=== PATIENT | female | born 1970 | race Caucasian/White ===

== ENCOUNTER 2021-05-26 19:25 | Emergency (ER) | payer BC ==
[2021-05-26 19:48] VITALS: RESP 18; TEMP 98
--- NOTE | 2021-05-26 19:53 | ED ---
General Adult HPI - General Chief complaint: Chest Pain Stated complaint: Palpitations Time Seen by Provider: 05/26/21 19:28 Source: patient Mode of arrival: ambulatory - History of Present Illness Initial comments: Hoda is a 50yo F with PMH of anxiety and palpitations. Patient presents to the ER today via ambulance with complaint of worsening palpitations for 3 weeks duration. Patient denies any chest pain, she reports the palpitations occur without provocation, improve with time. She denies any caffeine, chocolate, energy drinks or amphetamine intake. She states that she's been evaluated for palpitations and passes have a thermometer but there is never been any findings. She denies recent illness. Patient does admit to drinking approximately 15 beers daily and is a heavy cigarette smoker. She has no cardiac history does not follow with cardiology. - Related Data Home Medications Medication Instructions Recorded Confirmed Albuterol Sulfate [Albuterol 2 puff INHALATION RT-Q4H PRN 05/26/21 05/26/21 Sulfate Hfa] Budesonide/Formoterol Fumarate 2 puff INHALATION RT-BID 05/26/21 05/26/21 [Budesonide-Formoterol 160-4.5] Cetirizine HCl 10 mg PO DAILY 05/26/21 05/26/21 Diltiazem HCl [Cardizem CD] 360 mg PO DAILY 05/26/21 05/26/21 Escitalopram [Lexapro] 20 mg PO DAILY 05/26/21 05/26/21 Lansoprazole [Prevacid] 30 mg PO DAILY 05/26/21 05/26/21 Levothyroxine Sodium 150 mcg PO DAILY 05/26/21 05/26/21 Montelukast Sodium [Singulair] 10 mg PO HS 05/26/21 05/26/21 Spironolactone [Aldactone] 25 mg PO DAILY 05/26/21 05/26/21 Allergies Allergy/AdvReac Type Severity Reaction Status Date / Time cephalexin [From Keflex] Allergy Intermediate Itching Verified 05/26/21 21:41 clonidine Allergy Intermediate Itching Verified 05/26/21 21:41 codeine Allergy Intermediate Itching Verified 05/26/21 21:41 hydromorphone [From Dilaudid] Allergy Intermediate Itching Verified 05/26/21 21:41 Sulfa (Sulfonamide Allergy Intermediate Itching Verified 05/26/21 21:41 Antibiotics) Review of Systems ROS Statement: Those systems with pertinent positive or pertinent negative responses have been documented in the HPI. ROS Other: All systems not noted in ROS Statement are negative. Past Medical History Smoking Status: Current every day smoker Past Alcohol Use History: Abuse Past Drug Use History: None Reported General Exam - General Exam Comments Initial Comments: Physical Exam GENERAL: Patient is well-developed and well-nourished. Patient is nontoxic and well- hydrated and is in no distress. HENT: Normocephalic, Atraumatic. EYES: PERRL, EOMI PULMONARY: Unlabored respirations. No audible rales rhonchi or wheezing was noted. CARDIOVASCULAR: There is a regular rate and rhythm without any murmurs gallops or rubs. ABDOMEN: Soft and nontender with normal bowel sounds. SKIN: Skin is clear with no lesions or rashes and otherwise unremarkable. : Deferred NEUROLOGIC: Patient is alert and oriented x3. Moving all extremities spontaneously MUSCULOSKELETAL: Normal extremities with adequate strength and full range of motion. No lower extremity swelling or edema. No calf tenderness. PSYCHIATRIC: Normal psychiatric evaluation. Course Vital Signs 05/26/21 05/26/21 19:29 21:11 Temperature 98.0 F Pulse Rate 84 88 Respiratory 18 18 Rate Blood Pressure 142/94 123/77 O2 Sat by Pulse 100 99 Oximetry EKG Findings - EKG Comments: EKG Findings:: EKG was obtained due to complaint of palpitations, EKG was obtained 193, rate is 76 rhythm is sinus rhythm axis normal intervals, CA 156, QRS 110, QTC 428. There are no acute ST elevations or depressions no evidence of ischemia or infarction or arrhythmia. Medical Decision Making - Medical Decision Making The patient was seen and evaluated, history was obtained from the patient Patient with PVCs noted on the family services manager, EKG with sinus rhythm Labs were relatively unremarkable, TSH is low however free T4 is within normal limits patient is not tachycardic, patient maintained in sinus rhythm on the monitor in the emergency department Culture discussed the patient who feels reassured and is comfortable with plan for discharge home - Lab Data Result diagrams: 05/26/21 20:21 05/26/21 20:21 Lab Results 05/26/21 05/26/21 05/26/21 Range/Units 20:21 20:21 20:21 WBC 10.5 (3.8-10.6) k/uL RBC 4.75 (3.80-5.40) m/uL Hgb 17.4 H (11.4-16.0) gm/dL Hct 52.1 H (34.0-46.0) % MCV 109.8 H (80.0-100.0) fL MCH 36.7 H (25.0-35.0) pg MCHC 33.4 (31.0-37.0) g/dL RDW 13.2 (11.5-15.5) % Plt Count 282 (150-450) k/uL MPV 7.6 Neutrophils % 64 % Lymphocytes % 21 % Monocytes % 7 % Eosinophils % 4 % Basophils % 1 % Neutrophils # 6.8 (1.3-7.7) k/uL Lymphocytes # 2.2 (1.0-4.8) k/uL Monocytes # 0.7 (0-1.0) k/uL Eosinophils # 0.5 (0-0.7) k/uL Basophils # 0.1 (0-0.2) k/uL Macrocytosis Marked A Sodium 139 (137-145) mmol/L Potassium 4.3 (3.5-5.1) mmol/L Chloride 104 (98-107) mmol/L Carbon Dioxide 22 (22-30) mmol/L Anion Gap 13 mmol/L BUN 2 L (7-17) mg/dL Creatinine 0.42 L (0.52-1.04) mg/dL Est GFR (CKD-EPI)AfAm >90 (>60 ml/min/1.73 sqM) Est GFR (CKD-EPI)NonAf >90 (>60 ml/min/1.73 sqM) Glucose 93 (74-99) mg/dL Calcium 9.4 (8.4-10.2) mg/dL Magnesium 2.2 (1.6-2.3) mg/dL Total Bilirubin 0.4 (0.2-1.3) mg/dL AST 84 H (14-36) U/L ALT 40 H (4-34) U/L Alkaline Phosphatase 149 H (38-126) U/L Troponin I <0.012 (0.000-0.034) ng/mL Total Protein 7.9 (6.3-8.2) g/dL Albumin 4.4 (3.5-5.0) g/dL TSH 0.208 L (0.465-4.680) mIU/L Free T4 1.76 (0.78-2.19) ng/dL Disposition Clinical Impression: Palpitations Disposition: HOME SELF-CARE Condition: Stable Instructions (If sedation given, give patient instructions): Heart Palpitations (DC) Is patient prescribed a controlled substance at d/c from ED?: No Referrals: Adebayo Angel MD [STAFF PHYSICIAN] - 1-2 days Parvez Nettles MD [STAFF PHYSICIAN] - 1-2 days
[2021-05-26 20:27] LABS: Eosinophils % (A) 4 %; HCT 52.1 % (34.0-46.0); HGB 17.4 gm/dL (11.4-16.0); Lymphocytes % (A) 21 %; MCH 36.7 pg (25.0-35.0); MCHC 33.4 g/dL (31.0-37.0); MCV 109.8 fL (80.0-100.0); Macrocytosis Marked; Mean Platelet Volume 7.6; Monocytes % (A) 7 %; Neutrophils % (A) 64 %; Platelet Count 282 k/uL (150-450); RBC 4.75 m/uL (3.80-5.40); RDW 13.2 % (11.5-15.5); WBC 10.5 k/uL (3.8-10.6)
[2021-05-26 20:28] LABS: Basophils # (A) 0.1 k/uL (0-0.2); Basophils % (A) 1 %; Eosinophils # (A) 0.5 k/uL (0-0.7); Lymphocytes # (A) 2.2 k/uL (1.0-4.8); Monocytes # (A) 0.7 k/uL (0-1.0); Neutrophils # (A) 6.8 k/uL (1.3-7.7)
[2021-05-26 20:37] LABS: ALT 40 U/L (4-34); AST 84 U/L (14-36); African American GFR (CKD) >90 (>60 ml/min/1.73 sqM); Albumin 4.4 g/dL (3.5-5.0); Alkaline Phosphatase 149 U/L (38-126); Anion Gap 13 mmol/L; Blood Urea Nitrogen 2 mg/dL (7-17); Calcium 9.4 mg/dL (8.4-10.2); Carbon Dioxide 22 mmol/L (22-30); Chloride 104 mmol/L (98-107); Glucose 93 mg/dL (74-99); Magnesium 2.2 mg/dL (1.6-2.3); Non-African American GFR(CKD) >90 (>60 ml/min/1.73 sqM); Potassium 4.3 mmol/L (3.5-5.1); Sodium 139 mmol/L (137-145); Total Bilirubin 0.4 mg/dL (0.2-1.3); Total Protein 7.9 g/dL (6.3-8.2)
[2021-05-26 21:12] VITALS: BP 123/77; PULSE 88
--- NOTE | 2021-05-26 21:19 | XR ---
EXAMINATION TYPE: XR chest 2V DATE OF EXAM: 05/26/2021 COMPARISON: NONE HISTORY: Palpitations. Chest pain TECHNIQUE: 2 views FINDINGS: Heart and mediastinum are normal. Lungs are clear. Diaphragm is normal. Bony thorax appears normal. IMPRESSION: Normal chest
[2021-05-26 21:39] LABS: T4, Free (Free Thyroxine) 1.76 ng/dL (0.78-2.19)
== END 2021-05-26 22:23 | disposition home or self-care (01) ==
LOC: EC 19:25 → SUPCPDRO 19:25 → EC 22:23
DX: R00.2 Palpitations (principal); F17.200 Nicotine dependence, unspecified, uncomplicated; Z88.8 Allergy status to other drugs, medicaments and biological substances; Z88.2 Allergy status to sulfonamides
CPT/HCPCS: 36415; 71046; 80053; 83735; 83880; 84439; 84443; 84484; 85025; 93005; 99285

== ENCOUNTER 2021-09-01 23:31 | Emergency (ER) | payer BC ==
[2021-09-02 00:27] LABS: Basophils # (A) 0.3 k/uL (0-0.2); Basophils % (A) 2 %; Eosinophils # (A) 0.5 k/uL (0-0.7); Eosinophils % (A) 4 %; HCT 50.8 % (34.0-46.0); HGB 17.1 gm/dL (11.4-16.0); Lymphocytes # (A) 1.5 k/uL (1.0-4.8); Lymphocytes % (A) 13 %; MCH 35.6 pg (25.0-35.0); MCHC 33.7 g/dL (31.0-37.0); MCV 105.7 fL (80.0-100.0); Macrocytosis Moderate; Mean Platelet Volume 7.4; Monocytes # (A) 0.9 k/uL (0-1.0); Monocytes % (A) 8 %; Neutrophils # (A) 8.1 k/uL (1.3-7.7); Neutrophils % (A) 71 %; Platelet Count 219 k/uL (150-450); RBC 4.81 m/uL (3.80-5.40); RDW 13.2 % (11.5-15.5); WBC 11.4 k/uL (3.8-10.6)
--- NOTE | 2021-09-02 00:29 | ED ---
Chest Pain HPI - General Chief Complaint: Chest Pain Stated Complaint: right side chest pain Time Seen by Provider: 09/01/21 23:35 Source: patient, EMS Mode of arrival: EMS Limitations: no limitations - History of Present Illness Initial Comments: 50-year-old female with past medical history of daily alcohol abuse presents emergency Department with chest pain. Patient states that she was at home when she had sudden onset of chest pain underneath her right breast. It was maximum in intensity upon onset. Worse with breathing. No history of DVT or PE. No history of cardiac disease. She did not take anything for pain but called an ambulance. EMS did give her 4 aspirin. Denies calf pain. No fevers chills or cough. No other alleviating, precipitating or modifying factors - Related Data Home Medications Medication Instructions Recorded Confirmed Albuterol Sulfate [Albuterol 2 puff INHALATION RT-Q4H PRN 05/26/21 05/26/21 Sulfate Hfa] Budesonide/Formoterol Fumarate 2 puff INHALATION RT-BID 05/26/21 05/26/21 [Budesonide-Formoterol 160-4.5] Cetirizine HCl 10 mg PO DAILY 05/26/21 05/26/21 Escitalopram [Lexapro] 20 mg PO DAILY 05/26/21 05/26/21 Lansoprazole [Prevacid] 30 mg PO DAILY 05/26/21 05/26/21 Levothyroxine Sodium 150 mcg PO DAILY 05/26/21 05/26/21 Montelukast Sodium [Singulair] 10 mg PO HS 05/26/21 05/26/21 Spironolactone [Aldactone] 25 mg PO DAILY 05/26/21 05/26/21 dilTIAZem HCL [Cardizem CD] 360 mg PO DAILY 05/26/21 05/26/21 Previous Rx's Medication Instructions Recorded Azithromycin [Zithromax] 250 mg PO DAILY 1 Days #4 tab 09/02/21 Allergies Allergy/AdvReac Type Severity Reaction Status Date / Time cephalexin [From Keflex] Allergy Intermediate Itching Verified 05/26/21 21:41 clonidine Allergy Intermediate Itching Verified 05/26/21 21:41 codeine Allergy Intermediate Itching Verified 05/26/21 21:41 hydromorphone [From Dilaudid] Allergy Intermediate Itching Verified 05/26/21 21:41 Sulfa (Sulfonamide Allergy Intermediate Itching Verified 05/26/21 21:41 Antibiotics) iodine Allergy Rapid Verified 09/01/21 23:38 Heart Rate Iodine and Iodide Containing Allergy Rapid Verified 09/01/21 23:38 Produc Heart Rate Review of Systems ROS Statement: Those systems with pertinent positive or pertinent negative responses have been documented in the HPI. ROS Other: All systems not noted in ROS Statement are negative. EKG Findings - EKG Comments: EKG Findings:: EKG demonstrates sinus rhythm with a rate of 84. LA interval 155. QRS 112. QTC 423. No acute ST segment elevations or depressions concerning for ischemic changes. Past Medical History Smoking Status: Current every day smoker Past Alcohol Use History: Abuse, Heavy Past Drug Use History: None Reported General Exam Limitations: no limitations General appearance: alert, in no apparent distress Head exam: Present: atraumatic, normocephalic, normal inspection Eye exam: Present: normal appearance, PERRL, EOMI. Absent: scleral icterus, conjunctival injection, periorbital swelling ENT exam: Present: normal exam, mucous membranes moist Neck exam: Present: normal inspection. Absent: tenderness, meningismus, lymphadenopathy Respiratory exam: Present: normal lung sounds bilaterally, chest wall tenderness. Absent: respiratory distress, wheezes, rales, rhonchi, stridor Cardiovascular Exam: Present: regular rate, normal rhythm, normal heart sounds. Absent: systolic murmur, diastolic murmur, rubs, gallop, clicks GI/Abdominal exam: Present: soft, normal bowel sounds. Absent: distended, tenderness, guarding, rebound, rigid Extremities exam: Present: normal inspection, full ROM, normal capillary refill. Absent: tenderness, pedal edema, joint swelling, calf tenderness Back exam: Present: normal inspection Neurological exam: Present: alert, oriented X3, CN II-XII intact Psychiatric exam: Present: normal affect, normal mood Skin exam: Present: warm, dry, intact, normal color. Absent: rash Course Vital Signs 09/01/21 09/02/21 09/02/21 23:32 01:47 04:24 Temperature 98.1 F 98.2 F Pulse Rate 89 83 89 Respiratory 18 16 16 Rate Blood Pressure 128/83 113/70 133/81 O2 Sat by Pulse 99 98 98 Oximetry Chest Pain MDM - MDM Upon arrival patient was placed into room 8. History and physical exam was performed. IV access established laboratory studies are conducted. Chest x-ray is performed. D-dimer mildly elevated and therefore patient is sent for a CT of her chest. CT is reviewed and demonstrates no evidence of pulmonary emboli. There are pulmonary infiltrates consistent with pneumonia. Results are discussed with patient. Will be treated. Discharged home and instructed to return for any new or worsening symptoms. Needs to see her primary care in 2-4 days. Patient agreed and was discharged home in stable condition Disposition Clinical Impression: Pleuritic chest pain, Pneumonia Disposition: HOME SELF-CARE Condition: Stable Instructions (If sedation given, give patient instructions): Bacterial Pneumonia (ED) Additional Instructions: Please use your inhaler every 4 hours. Follow-up with your primary care doctor in 2 days and return for any new or worsening symptoms Prescriptions: Azithromycin [Zithromax] 250 mg PO DAILY 1 Days #4 tab Is patient prescribed a controlled substance at d/c from ED?: No Referrals: Alexandre Elizondo MD [Primary Care Provider] - 1-2 days Time of Disposition: 04:15
[2021-09-02 00:41] LABS: INR 0.9 (<1.2); Prothrombin Time 10.1 sec (9.0-12.0)
[2021-09-02 00:44] LABS: ALT 26 U/L (4-34); AST 39 U/L (14-36); African American GFR (CKD) >90 (>60 ml/min/1.73 sqM); Albumin 4.3 g/dL (3.5-5.0); Alkaline Phosphatase 112 U/L (38-126); Anion Gap 13 mmol/L; Blood Urea Nitrogen <2 mg/dL (7-17); Calcium 9.3 mg/dL (8.4-10.2); Carbon Dioxide 21 mmol/L (22-30); Chloride 107 mmol/L (98-107); Glucose 103 mg/dL (74-99); Lipase 209 U/L (23-300); Magnesium 2.1 mg/dL (1.6-2.3); Non-African American GFR(CKD) >90 (>60 ml/min/1.73 sqM); Potassium 3.4 mmol/L (3.5-5.1); Sodium 141 mmol/L (137-145); Total Bilirubin 0.4 mg/dL (0.2-1.3); Total Protein 7.5 g/dL (6.3-8.2)
--- NOTE | 2021-09-02 00:48 | XR ---
EXAM: XR Chest, 2 Views CLINICAL HISTORY: ITS.REASON XR Reason: Chest Pain TECHNIQUE: Frontal and lateral views of the chest. COMPARISON: No relevant prior studies available. FINDINGS: Lungs: No consolidative change. Pleural space: No pleural effusions. No pneumothorax. Heart: Cardiomediastinal silhouette unremarkable. Mediastinum: See above. Bones/joints: Osteopenia. Moderate to severe degenerative disc disease of the thoracic spine, levoscoliosis, kyphosis. IMPRESSION: No active disease, similar to that noted on the previous study.
[2021-09-02] MEDS ORDERED: methylPREDNISolone SOD SUCCI 125 MG/2 ML VIAL IV STA (01:33)
[2021-09-02] MEDS ORDERED: diphenhydrAMINE 50 MG/ML 1 ML VIAL IVP STA (01:33)
[2021-09-02] MEDS ORDERED: FAMOTIDINE 20 MG/2 ML VIAL IV STA (01:33)
[2021-09-02 01:47] VITALS: RESP 16
--- NOTE | 2021-09-02 04:03 | CT ---
EXAM: CT Angiography Chest With Intravenous Contrast CLINICAL HISTORY: ITS.REASON CT Reason: pleuritic chest pain, elevated d-dimer TECHNIQUE: Axial computed tomographic angiography images of the chest with intravenous contrast. CTDI is 9.17 mGy and DLP is 247.2 mGy-cm. This CT exam was performed using one or more of the following dose reduction techniques: automated exposure control, adjustment of the mA and/or kV according to patient size, and/or use of iterative reconstruction technique. MIP reconstructed images were created and reviewed. COMPARISON: No relevant prior studies available. FINDINGS: Pulmonary arteries: Unremarkable. No pulmonary embolism. Aorta: No acute findings. No thoracic aortic aneurysm. Lungs: There are bilateral pulmonary infiltrates, most diffusely in the right upper lobe. Small areas of consolidation are seen in the anterior aspect of the right upper lobe as well as the right middle lobe. Pleural space: Unremarkable. No significant effusion. No pneumothorax. Heart: Unremarkable. No cardiomegaly. No significant pericardial effusion. No evidence of RV dysfunction. Bones/joints: No acute fracture. No dislocation. Soft tissues: Unremarkable. Lymph nodes: Unremarkable. No enlarged lymph nodes. IMPRESSION: Pulmonary infiltrates consistent with pneumonia. No evidence of pulmonary emboli.
[2021-09-02] MEDS ORDERED: AZITHROMYCIN 250 MG TAB PO STA (04:12)
[2021-09-02 04:42] VITALS: BP 133/81; PULSE 89; TEMP 98.2
== END 2021-09-02 04:24 | disposition home or self-care (01) ==
LOC: EC 23:31
DX: J18.9 Pneumonia, unspecified organism (principal); F17.200 Nicotine dependence, unspecified, uncomplicated; Z79.51 Long term (current) use of inhaled steroids; Z79.890 Hormone replacement therapy; Z79.899 Other long term (current) drug therapy
CPT/HCPCS: 36415; 93005; 85379; 80053; 83690; 83735; 84484; 85025; 85610; 85730; 71046; 71275; 99285; 96374; 96375 ×2; J1200; J2930; Q9967

== ENCOUNTER 2022-10-31 01:10 | Emergency (ER) | payer BC ==
[2022-10-31] MEDS ORDERED: SODIUM CHLORIDE 0.9% 1,000 ML IV STA (01:28)
[2022-10-31] MEDS ORDERED: LORazepam 2 MG/ML INJ IV PRN ×3 (01:29)
[2022-10-31] MEDS ORDERED: THIAMINE 100 MG/ML 2 ML VIAL IM STA (01:29)
[2022-10-31 02:06] LABS: Basophils % (A) 1 %; Eosinophils # (A) 0.3 k/uL (0-0.7); Eosinophils % (A) 5 %; HGB 16.4 gm/dL (11.4-16.0); Lymphocytes % (A) 29 %; MCH 36.7 pg (25.0-35.0); MCV 104.8 fL (80.0-100.0); Macrocytosis Slight; Mean Platelet Volume 8.3; Monocytes # (A) 0.7 k/uL (0-1.0); Monocytes % (A) 11 %; Neutrophils # (A) 3.6 k/uL (1.3-7.7); Neutrophils % (A) 52 %; Platelet Count 207 k/uL (150-450); RBC 4.49 m/uL (3.80-5.40); RDW 12.5 % (11.5-15.5); WBC 6.9 k/uL (3.8-10.6)
[2022-10-31 02:15] LABS: ALT 52 U/L (4-34); AST 99 U/L (14-36); African American GFR (CKD) >90 (>60 ml/min/1.73 sqM); Albumin 4.5 g/dL (3.5-5.0); Alkaline Phosphatase 133 U/L (38-126); Anion Gap 16 mmol/L; Blood Urea Nitrogen 3 mg/dL (7-17); Calcium 9.3 mg/dL (8.4-10.2); Carbon Dioxide 19 mmol/L (22-30); Chloride 105 mmol/L (98-107); Glucose 107 mg/dL (74-99); Magnesium 2.2 mg/dL (1.6-2.3); Non-African American GFR(CKD) >90 (>60 ml/min/1.73 sqM); Phosphorus 3.6 mg/dL (2.5-4.5); Potassium 3.5 mmol/L (3.5-5.1); Sodium 140 mmol/L (137-145); Total Bilirubin 0.4 mg/dL (0.2-1.3); Total Protein 8.1 g/dL (6.3-8.2)
[2022-10-31 02:37] LABS: Appearance,Urine Clear (Clear); Bilirubin,Urine Negative (Negative); Blood,Urine Negative (Negative); Glucose,Urine (UA) Negative (Negative); Ketones,Urine Negative (Negative); Leukocyte Esterase,Urine Negative (Negative); Nitrite,Urine Negative (Negative); PH, Urine 5.5 (5.0-8.0); Protein,Urine Negative (Negative); Specific Gravity,Urine 1.002 (1.001-1.035); Urobilinogen,Urine <2.0 mg/dL (<2.0)
[2022-10-31 02:42] LABS: Prothrombin Time 10.9 sec (9.0-12.0)
--- NOTE | 2022-10-31 02:45 | ED ---
Alcohol HPI - General Chief Complaint: Alcohol Stated Complaint: ETOH Time Seen by Provider: 10/31/22 01:21 Source: patient, EMS Mode of arrival: EMS Limitations: no limitations - History of Present Illness Initial Comments: 51-year-old female presenting with chief complaint of alcohol intoxication, wishes to detox. Patient normally drinks 25 beers per day. Last drink was just prior to arrival at our facility. States that she went to [facility] ye sterday but was sent for a, she states that they claimed to only give clonidine for withdrawal which she is ALLERGIC to. She denies any chest pain, difficulty breathing, abdominal pain, nausea, vomiting, fever, chills, dizziness, vision or hearing changes, numbness, tingling, weakness. States that she has never detoxed from alcohol and is unsure what her reaction feeling, she wishes to be observed during detoxing. - Related Data Home Medications Medication Instructions Recorded Confirmed Albuterol Sulfate [Albuterol 2 puff INHALATION RT-Q4H PRN 05/26/21 05/26/21 Sulfate Hfa] Budesonide/Formoterol Fumarate 2 puff INHALATION RT-BID 05/26/21 05/26/21 [Budesonide-Formoterol 160-4.5] Cetirizine HCl 10 mg PO DAILY 05/26/21 05/26/21 Escitalopram [Lexapro] 20 mg PO DAILY 05/26/21 05/26/21 Lansoprazole [Prevacid] 30 mg PO DAILY 05/26/21 05/26/21 Levothyroxine Sodium 150 mcg PO DAILY 05/26/21 05/26/21 Montelukast Sodium [Singulair] 10 mg PO HS 05/26/21 05/26/21 Spironolactone [Aldactone] 25 mg PO DAILY 05/26/21 05/26/21 dilTIAZem HCL [Cardizem CD] 360 mg PO DAILY 05/26/21 05/26/21 Previous Rx's Medication Instructions Recorded Azithromycin [Zithromax] 250 mg PO DAILY 1 Days #4 tab 09/02/21 LORazepam [Ativan] 1 mg PO TID 3 Days #9 tab 10/31/22 Allergies Allergy/AdvReac Type Severity Reaction Status Date / Time cephalexin [From Keflex] Allergy Intermediate Itching Verified 10/31/22 01:22 clonidine Allergy Intermediate Itching Verified 10/31/22 01:22 codeine Allergy Intermediate Itching Verified 10/31/22 01:22 hydromorphone [From Dilaudid] Allergy Intermediate Itching Verified 10/31/22 01:22 Sulfa (Sulfonamide Allergy Intermediate Itching Verified 10/31/22 01:22 Antibiotics) bupropion Allergy Unknown Verified 10/31/22 01:22 doxycycline Allergy Hallucinati Verified 10/31/22 01:22 ons iodine Allergy Rapid Verified 10/31/22 01:22 Heart Rate Iodine and Iodide Containing Allergy Rapid Verified 10/31/22 01:22 Produc Heart Rate Review of Systems ROS Statement: Those systems with pertinent positive or pertinent negative responses have been documented in the HPI. ROS Other: All systems not noted in ROS Statement are negative. Past Medical History Past Medical History: Asthma, GERD/Reflux, Hypertension, Thyroid Disorder Additional Past Medical History / Comment(s): knee pain History of Any Multi-Drug Resistant Organisms: None Reported Past Surgical History: Hysterectomy Past Psychological History: Anxiety, Depression Smoking Status: Current every day smoker Past Alcohol Use History: Abuse, Heavy Past Drug Use History: None Reported General Exam Limitations: no limitations General appearance: alert, in no apparent distress Head exam: Present: atraumatic, normocephalic, normal inspection Eye exam: Present: normal appearance, EOMI Neck exam: Present: normal inspection, full ROM Respiratory exam: Present: normal lung sounds bilaterally. Absent: respiratory distress, wheezes, rales, rhonchi, stridor Cardiovascular Exam: Present: regular rate, normal rhythm, normal heart sounds. Absent: systolic murmur, diastolic murmur, rubs, gallop, clicks Neurological exam: Present: alert, oriented X3, CN II-XII intact Expanded Patient oriented to: Present: person, place, time Speech: Present: fluid speech Cranial nerves: EOM's Intact: Normal Motor strength exam: RUE: 5, LUE: 5, RLE: 5, LLE: 5 Eye Response: (4) open spontaneously Motor Response: (6) obeys commands Verbal Response: (5) oriented [place] Total: 15 Psychiatric exam: Present: normal affect, normal mood Skin exam: Present: warm, dry, intact, normal color. Absent: rash Course Vital Signs 10/31/22 10/31/22 10/31/22 01:13 01:30 01:40 Temperature 97.9 F Pulse Rate 79 Respiratory 20 Rate Blood Pressure 148/88 148/88 133/85 O2 Sat by Pulse 98 Oximetry 10/31/22 10/31/22 10/31/22 01:50 02:00 02:10 Temperature Pulse Rate 73 Respiratory 20 Rate Blood Pressure 133/85 133/85 129/83 O2 Sat by Pulse Oximetry 10/31/22 10/31/22 10/31/22 02:20 02:30 02:40 Temperature Pulse Rate 74 84 Respiratory 12 36 H Rate Blood Pressure 129/83 129/83 127/73 O2 Sat by Pulse 99 98 Oximetry 10/31/22 10/31/22 10/31/22 02:50 03:00 03:10 Temperature Pulse Rate 86 95 73 Respiratory 18 21 18 Rate Blood Pressure 127/73 127/73 O2 Sat by Pulse 97 99 Oximetry 10/31/22 04:27 Temperature 97.6 F Pulse Rate 70 Respiratory 16 Rate Blood Pressure 132/76 O2 Sat by Pulse 98 Oximetry Medical Decision Making - Medical Decision Making Was pt. sent in by a medical professional or institution (, PA, GRAPPLE YARDER OPERATOR, urgent care, hospital, or [place] [facility] facility...) When possible be specific @ -No Did you speak to anyone other than the patient for history (EMS, parent, family, police, friend...)? What history was obtained from this source @ -No Did you review nursing and triage notes (agree or disagree)? Why? @ -I reviewed and agree with nursing and triage notes Were old charts reviewed (outside hosp., previous admission, EMS record, old EKG, old radiological studies, urgent care reports/EKG's, [place] health care facility records)? Report findings @ -No old charts were reviewed Differential Diagnosis (chest pain, altered mental status, abdominal pain women, abdominal pain men, vaginal bleeding, weakness, fever, dyspnea, syncope, headache, dizziness, GI bleed, back pain, seizure, CVA, palpatations, mental health, musculoskeletal)? @ -not applicable EKG interpreted by me (3pts min.). @ -Sinus rhythm ventricular rate 69. [place] interval 153. QRS 106. QT 424. QTC 443. X-rays interpreted by me (1pt min.). @ -None done CT interpreted by me (1pt min.). @ -CT shows no acute hemorrhage, hydrocephalus, or mass effect U/S interpreted by me (1pt. min.). @ -None done What testing was considered but not performed or refused? (CT, X-rays, U/S, labs)? Why? @ -None What meds were considered but not given or refused? Why? @ -None Did you discuss the management of the patient with other professionals (professionals i.e. Dr., PA, GRAPPLE YARDER OPERATOR, lab, RT, psych nurse, professor of social work, camp attendant, teacher, protocol officer, case assembler)? Give summary @ -No Was smoking cessation discussed for >3mins.? @ -No Was critical care preformed (if so, how long)? @ -No Were there social determinants of health that impacted care today? How? (Homelessness, low income, unemployed, alcoholism, drug addiction, transportation, low edu. Level, literacy, decrease access to med. care, snf, rehab)? @ -Alcoholism Was there de-escalation of care discussed even if they declined (Discuss DNR or withdrawal of care, Hospice)? DNR status @ -No What co-morbidities impacted this encounter? (DM, HTN, Smoking, COPD, CAD, Cancer, CVA, ARF, Chemo, Hep., AIDS, mental health diagnosis, sleep apnea, morbid obesity)? @ -None Was patient admitted / discharged? Hospital course, mention meds given and route, prescriptions, significant lab abnormalities, going to OR and other pertinent info. @ -51-year-old female presenting with chief complaint of alcohol intoxication. She states that she would like to detox. She states she attempted to check in t he [facility] but was turned away. At this time her alcohol level is 0.113. Mild transaminitis likely due to alcoholism. His negative CT of the brain. Elevated hemoglobin and hematocrit likely due to hemoconcentration and dehydration. CIWA score is 4. Patient is clinically sober and showing no signs of withdrawal. She will be discharged home with prescription for Ativan. She is instructed to report back to ER with any new or worsening symptoms. Follow-up with PCP. Report back to ER with any new or worsening symptoms. Discussed return parameters and answered all questions. Patient conveyed verbal understanding and agreed to the plan. I discussed this case in detail with my attending Dr. Pascual Undiagnosed new problem with uncertain prognosis? @ -No Drug Therapy requiring intensive monitoring for toxicity (Heparin, Nitro, Insulin, Cardizem)? @ -No Were any procedures done? @ -No Diagnosis/symptom? @ -Alcohol intoxication Acute, or Chronic, or Acute on Chronic? @ -acute Uncomplicated (without systemic symptoms) or Complicated (systemic symptoms)? @ -Uncomplicated Side effects of treatment? @ -No Exacerbation, Progression, or Severe Exacerbation? @ -No Poses a threat to life or bodily function? How? (Chest pain, [place], [place], pneumonia, PE, COPD, DKA, ARF, appy, cholecystitis, CVA, Diverticulitis, Homicidal, Suicidal, threat to staff... and all critical care pts) @ -No - Lab Data Result diagrams: 10/31/22 01:32 10/31/22 01:32 Lab Results 10/31/22 10/31/22 10/31/22 Range/Units 01:32 01:32 01:32 WBC 6.9 (3.8-10.6) k/uL RBC 4.49 (3.80-5.40) m/uL Hgb 16.4 H (11.4-16.0) gm/dL Hct 47.0 H (34.0-46.0) % MCV 104.8 H (80.0-100.0) fL MCH 36.7 H (25.0-35.0) pg MCHC 35.0 (31.0-37.0) g/dL RDW 12.5 (11.5-15.5) % Plt Count 207 (150-450) k/uL MPV 8.3 Neutrophils % 52 % Lymphocytes % 29 % Monocytes % 11 % Eosinophils % 5 % Basophils % 1 % Neutrophils # 3.6 (1.3-7.7) k/uL Lymphocytes # 2.0 (1.0-4.8) k/uL Monocytes # 0.7 (0-1.0) k/uL Eosinophils # 0.3 (0-0.7) k/uL Basophils # 0.0 (0-0.2) k/uL Macrocytosis Slight PT 10.9 (9.0-12.0) sec INR 1.0 (<1.2) Sodium (137-145) mmol/L Potassium (3.5-5.1) mmol/L Chloride (98-107) mmol/L Carbon Dioxide (22-30) mmol/L Anion Gap mmol/L BUN (7-17) mg/dL Creatinine (0.52-1.04) mg/dL Est GFR (CKD-EPI)AfAm (>60 ml/min/1.73 sqM) Est GFR (CKD-EPI)NonAf (>60 ml/min/1.73 sqM) Glucose (74-99) mg/dL Calcium (8.4-10.2) mg/dL Phosphorus (2.5-4.5) mg/dL Magnesium (1.6-2.3) mg/dL Total Bilirubin (0.2-1.3) mg/dL AST (14-36) U/L ALT (4-34) U/L Alkaline Phosphatase (38-126) U/L Total Protein (6.3-8.2) g/dL Albumin (3.5-5.0) g/dL Urine Color Light Yellow Urine Appearance Clear (Clear) Urine pH 5.5 (5.0-8.0) Ur Specific [place] 1.002 (1.001-1.035) Urine Protein Negative (Negative) Urine Glucose (UA) Negative (Negative) Urine Ketones Negative (Negative) Urine Blood Negative (Negative) Urine Nitrite Negative (Negative) Urine Bilirubin Negative (Negative) Urine Urobilinogen <2.0 (<2.0) mg/dL Ur Leukocyte Esterase Negative (Negative) Urine Opiates Screen Not Detected (NotDetected) Ur Oxycodone Screen Not Detected (NotDetected) Urine Methadone Screen Not Detected (NotDetected) Ur Propoxyphene Screen Not Detected (NotDetected) Ur Barbiturates Screen Not Detected (NotDetected) U Tricyclic Antidepress Not Detected (NotDetected) Ur Phencyclidine Scrn Not Detected (NotDetected) Ur Amphetamines Screen Not Detected (NotDetected) U Methamphetamines Scrn Not Detected (NotDetected) U Benzodiazepines Scrn Not Detected (NotDetected) Urine Cocaine Screen Not Detected (NotDetected) U Marijuana (THC) Screen Not Detected (NotDetected) 10/31/22 Range/Units 01:32 WBC (3.8-10.6) k/uL RBC (3.80-5.40) m/uL Hgb (11.4-16.0) gm/dL Hct (34.0-46.0) % MCV (80.0-100.0) fL MCH (25.0-35.0) pg MCHC (31.0-37.0) g/dL RDW (11.5-15.5) % Plt Count (150-450) k/uL MPV Neutrophils % % Lymphocytes % % Monocytes % % Eosinophils % % Basophils % % Neutrophils # (1.3-7.7) k/uL Lymphocytes # (1.0-4.8) k/uL Monocytes # (0-1.0) k/uL Eosinophils # (0-0.7) k/uL Basophils # (0-0.2) k/uL Macrocytosis PT (9.0-12.0) sec INR (<1.2) Sodium 140 (137-145) mmol/L Potassium 3.5 (3.5-5.1) mmol/L Chloride 105 (98-107) mmol/L Carbon Dioxide 19 L (22-30) mmol/L Anion Gap 16 mmol/L BUN 3 L (7-17) mg/dL Creatinine 0.41 L (0.52-1.04) mg/dL Est GFR (CKD-EPI)AfAm >90 (>60 ml/min/1.73 sqM) Est GFR (CKD-EPI)NonAf >90 (>60 ml/min/1.73 sqM) Glucose 107 H (74-99) mg/dL Calcium 9.3 (8.4-10.2) mg/dL Phosphorus 3.6 (2.5-4.5) mg/dL Magnesium 2.2 (1.6-2.3) mg/dL Total Bilirubin 0.4 (0.2-1.3) mg/dL AST 99 H (14-36) U/L ALT 52 H (4-34) U/L Alkaline Phosphatase 133 H (38-126) U/L Total Protein 8.1 (6.3-8.2) g/dL Albumin 4.5 (3.5-5.0) g/dL Urine Color Urine Appearance (Clear) Urine pH (5.0-8.0) Ur Specific [place] (1.001-1.035) Urine Protein (Negative) Urine Glucose (UA) (Negative) Urine Ketones (Negative) Urine Blood (Negative) Urine Nitrite (Negative) Urine Bilirubin (Negative) Urine Urobilinogen (<2.0) mg/dL Ur Leukocyte Esterase (Negative) Urine Opiates Screen (NotDetected) Ur Oxycodone Screen (NotDetected) Urine Methadone Screen (NotDetected) Ur Propoxyphene Screen (NotDetected) Ur Barbiturates Screen (NotDetected) U Tricyclic Antidepress (NotDetected) Ur Phencyclidine Scrn (NotDetected) Ur Amphetamines Screen (NotDetected) U Methamphetamines Scrn (NotDetected) U Benzodiazepines Scrn (NotDetected) Urine Cocaine Screen (NotDetected) U Marijuana (THC) Screen (NotDetected) Disposition Clinical Impression: Alcohol withdrawal syndrome Disposition: HOME SELF-CARE Condition: Fair Instructions (If sedation given, give patient instructions): Alcohol Withdrawal (ED) Additional Instructions: Follow-up with PCP. Report back to ER with any new or worsening symptoms. Take medication as prescribed. Prescriptions: LORazepam [Ativan] 1 mg PO TID 3 Days #9 tab Is patient prescribed a controlled substance at d/c from ED?: No Referrals: Alexandre Elizondo MD [Primary Care Provider] - 1-2 days Time of Disposition: 03:59
[2022-10-31 02:46] LABS: Color,Urine Light Yellow
[2022-10-31 02:53] LABS: Amphetamine Screen,Urine Not Detected (NotDetected); Barbiturate Screen,Urine Not Detected (NotDetected); Benzodiazepines Screen,Urine Not Detected (NotDetected); Cocaine Screen,Urine Not Detected (NotDetected); Methadone Screen, Urine Not Detected (NotDetected); Opiate Screen,Urine Not Detected (NotDetected); Oxycodone Screen, Urine Not Detected (NotDetected); Phencyclidine Screen,Urine Not Detected (NotDetected); Tricyclic Antidepressant,Urine Not Detected (NotDetected); Urn Cannabinoid Scrn Not Detected (NotDetected)
--- NOTE | 2022-10-31 03:49 | CT ---
EXAM: CT Head Without Intravenous Contrast CLINICAL HISTORY: ITS.REASON CT Reason: dizziness, hx bleed TECHNIQUE: Axial computed tomography images of the head/brain without intravenous contrast. CTDI is 49.1 mGy and DLP is 1248.4 mGy-cm. This CT exam was performed using one or more of the following dose reduction techniques: automated exposure control, adjustment of the mA and/or kV according to patient size, and/or use of iterative reconstruction technique. COMPARISON: No relevant prior studies available. FINDINGS: Brain: No hemorrhage or mass effect. Basal ganglia calcifications. Ventricles: No hydrocephalus. Bones/joints: Unremarkable. Soft tissues: Unremarkable. Sinuses: No air fluid level. Mastoid air cells: Clear. IMPRESSION: No acute hemorrhage, hydrocephalus, or mass effect.
[2022-10-31 04:28] VITALS: BP 132/76; PULSE 70; RESP 16; TEMP 97.6
[2022-11-01] MEDS ORDERED: THIAMINE 100 MG TAB PO SCH (09:00)
== END 2022-10-31 04:30 | disposition home or self-care (01) ==
LOC: EC 01:10
DX: F10.239 Alcohol dependence with withdrawal, unspecified (principal); I10 Essential (primary) hypertension; J45.909 Unspecified asthma, uncomplicated; K21.9 Gastro-esophageal reflux disease without esophagitis; E07.9 Disorder of thyroid, unspecified; F41.9 Anxiety disorder, unspecified; F32.A Depression, unspecified; F17.200 Nicotine dependence, unspecified, uncomplicated; Z79.890 Hormone replacement therapy; Z79.51 Long term (current) use of inhaled steroids; Z79.899 Other long term (current) drug therapy; Z88.1 Allergy status to other antibiotic agents; Z88.2 Allergy status to sulfonamides; Z88.5 Allergy status to narcotic agent; Z88.8 Allergy status to other drugs, medicaments and biological substances; Z91.041 Radiographic dye allergy status; Y90.0 Blood alcohol level of less than 20 mg/100 ml
CPT/HCPCS: 99285; 96360; 96372; 82075; 36415; 93005; 80053; 83735; 84100; 85025; 85610; 81003; 80306; 70450; J3411; 99284

== ENCOUNTER 2023-04-09 21:17 | Emergency (ER) | payer BC ==
[2023-04-09] MEDS ORDERED: PANTOPRAZOLE 40 MG/10 ML VIAL IVP STA ×2 (21:29→22:03)
[2023-04-09] MEDS ORDERED: SODIUM CHLORIDE 0.9% 500 ML 500 ML IV STA (21:29)
[2023-04-09] MEDS ORDERED: ONDANSETRON 4 MG/2 ML VIAL IVP STA (21:29)
[2023-04-09 21:45] VITALS: RESP 18; TEMP 97.4
[2023-04-09 21:50] LABS: Basophils % (A) 0 %; Eosinophils % (A) 0 %; HGB 15.5 gm/dL (11.4-16.0); Lymphocytes # (A) 0.7 k/uL (1.0-4.8); Lymphocytes % (A) 7 %; MCH 35.6 pg (25.0-35.0); MCHC 33.7 g/dL (31.0-37.0); MCV 105.7 fL (80.0-100.0); Macrocytosis Slight; Mean Platelet Volume 7.5; Monocytes # (A) 0.3 k/uL (0-1.0); Monocytes % (A) 3 %; Neutrophils # (A) 8.2 k/uL (1.3-7.7); Neutrophils % (A) 88 %; Platelet Count 255 k/uL (150-450); RBC 4.35 m/uL (3.80-5.40); RDW 12.7 % (11.5-15.5); WBC 9.3 k/uL (3.8-10.6)
[2023-04-09 22:02] LABS: ALT 46 U/L (4-34); AST 101 U/L (14-36); African American GFR (CKD) >90 (>60 ml/min/1.73 sqM); Albumin 4.3 g/dL (3.5-5.0); Alkaline Phosphatase 130 U/L (38-126); Anion Gap 13 mmol/L; Blood Urea Nitrogen 5 mg/dL (7-17); Calcium 9.3 mg/dL (8.4-10.2); Carbon Dioxide 21 mmol/L (22-30); Chloride 107 mmol/L (98-107); Glucose 154 mg/dL (74-99); Lipase 519 U/L (23-300); Magnesium 2.4 mg/dL (1.6-2.3); Non-African American GFR(CKD) >90 (>60 ml/min/1.73 sqM); Sodium 141 mmol/L (137-145); Total Bilirubin 0.4 mg/dL (0.2-1.3); Total Protein 7.6 g/dL (6.3-8.2)
[2023-04-09 22:05] LABS: INR 0.9 (<1.2); Partial Thromboplastin Time 26.4 sec (22.0-30.0); Prothrombin Time 10.5 sec (10.0-12.5)
[2023-04-09 22:18] LABS: Alcohol 345 mg/dL
--- NOTE | 2023-04-09 22:18 | XR ---
EXAMINATION TYPE: XR chest 2V DATE OF EXAM: 04/09/2023 COMPARISON: 09/02/2021 INDICATION: Pain TECHNIQUE: Frontal and lateral views of the chest are obtained. FINDINGS: The heart size is normal. The pulmonary vasculature is normal. The lungs are clear. IMPRESSION: 1. No acute pulmonary process.
[2023-04-09] MEDS ORDERED: OCTREOTIDE 100 MCG/ML INJ IVP STA (22:58)
[2023-04-09] MEDS ORDERED: OCTREOTIDE 500 MCG in SODIUM CHLORIDE 0.9% 250 ML IV STA (22:58)
[2023-04-09 23:18] VITALS: BP 117/77; PULSE 87
--- NOTE | 2023-04-09 23:20 | ED ---
General Adult HPI - General Chief complaint: Recheck/Abnormal Lab/Rx Stated complaint: ETOH Coughing up blood Time Seen by Provider: 04/09/23 21:20 Source: patient, EMS Mode of arrival: EMS Limitations: no limitations - History of Present Illness Initial comments: 52-year-old female presents emergency department reporting hematemesis. States that her symptoms started today. She has had 2 episodes of bright red blood. States that she vomited approximately 1/2 cup. Patient does admit to daily alcohol abuse. Denies history of esophageal varices or gastric ulcer. She does not take any blood thinners. She denies black or bloody stools. No diagnosis of cirrhosis. EMS was called to transport the patient to the hospital. She does admit to drinking today. No other alleviating, precipitating modifying factors - Related Data Home Medications Medication Instructions Recorded Confirmed Albuterol Sulfate [Albuterol 2 puff INHALATION RT-Q4H PRN 05/26/21 04/09/23 Sulfate Hfa] Cetirizine HCl 10 mg PO DAILY 05/26/21 04/09/23 Lansoprazole [Prevacid] 30 mg PO DAILY 05/26/21 04/09/23 Levothyroxine Sodium 150 mcg PO DAILY 05/26/21 04/09/23 Montelukast Sodium [Singulair] 10 mg PO HS 05/26/21 04/09/23 Spironolactone [Aldactone] 25 mg PO DAILY 05/26/21 04/09/23 Azithromycin [Zithromax] See Taper PO DIRECTED 04/09/23 04/09/23 Budesonide/Glycopyr/Formoterol 2 puff INHALATION RT-BID 04/09/23 04/09/23 [Breztri Aerosphere Inhaler] Clindamycin Gel [Cleocin T 1% Gel] 1 applic TOPICAL BID 04/09/23 04/09/23 Cyanocobalamin (Vitamin B-12) 1,000 mcg PO DAILY 04/09/23 04/09/23 [Vitamin B-12] Divalproex ER [Depakote ER] 500 mg PO HS 04/09/23 04/09/23 Escitalopram [Lexapro] 10 mg PO DAILY 04/09/23 04/09/23 Folic Acid 1 mg PO DAILY 04/09/23 04/09/23 Ipratropium-Albuterol Nebulize 3 ml INHALATION RT-QID PRN 04/09/23 04/09/23 [Duoneb 0.5 mg-3 mg/3 ml Soln] Naltrexone HCl [Revia] 25 mg PO DAILY 04/09/23 04/09/23 Robitussin Max Elderberry 20 ml PO Q4H PRN MDD 120 mls 04/09/23 04/09/23 Cough&Chest Congestion Dm Thiamine [Vitamin B-1] 100 mg PO DAILY 04/09/23 04/09/23 dilTIAZem HCL [dilTIAZem HCL 24Hr 240 mg PO DAILY 04/09/23 04/09/23 ER (Xr)] predniSONE [Deltasone] 20 mg PO DAILY 04/09/23 04/09/23 Allergies Allergy/AdvReac Type Severity Reaction Status Date / Time cephalexin [From Keflex] Allergy Intermediate Itching Verified 04/09/23 22:36 clonidine Allergy Intermediate Itching Verified 04/09/23 22:36 codeine Allergy Intermediate Itching Verified 04/09/23 22:36 hydromorphone [From Dilaudid] Allergy Intermediate Itching Verified 04/09/23 22:36 Sulfa (Sulfonamide Allergy Intermediate Swelling Verified 04/09/23 22:36 Antibiotics) bupropion Allergy Unknown Verified 04/09/23 22:36 doxycycline Allergy Hallucinati Verified 04/09/23 22:36 ons iodine Allergy Rapid Verified 04/09/23 22:36 Heart Rate Iodine and Iodide Containing Allergy Rapid Verified 04/09/23 22:36 Produc Heart Rate Review of Systems ROS Statement: Those systems with pertinent positive or pertinent negative responses have been documented in the HPI. ROS Other: All systems not noted in ROS Statement are negative. Past Medical History Past Medical History: Asthma, GERD/Reflux, Hypertension, Thyroid Disorder Additional Past Medical History / Comment(s): knee pain History of Any Multi-Drug Resistant Organisms: None Reported Past Surgical History: Hysterectomy Past Psychological History: Anxiety, Depression Smoking Status: Current every day smoker Past Alcohol Use History: Abuse, Daily, Heavy Past Drug Use History: None Reported General Exam General appearance: alert, appears intoxicated Head exam: Present: atraumatic, normocephalic, normal inspection Eye exam: Present: normal appearance, PERRL, EOMI. Absent: scleral icterus, conjunctival injection, periorbital swelling ENT exam: Present: normal exam, mucous membranes moist Neck exam: Present: normal inspection. Absent: tenderness, meningismus, lymphadenopathy Respiratory exam: Present: normal lung sounds bilaterally. Absent: respiratory distress, wheezes, rales, rhonchi, stridor Cardiovascular Exam: Present: regular rate, normal rhythm, normal heart sounds. Absent: systolic murmur, diastolic murmur, rubs, gallop, clicks GI/Abdominal exam: Present: soft, normal bowel sounds. Absent: distended, tenderness, guarding, rebound, rigid Extremities exam: Present: normal inspection, full ROM, normal capillary refill. Absent: tenderness, pedal edema, joint swelling, calf tenderness Back exam: Present: normal inspection Neurological exam: Present: alert, oriented X3, CN II-XII intact Psychiatric exam: Present: normal affect, normal mood Skin exam: Present: warm, dry, intact, normal color. Absent: rash Course Vital Signs 04/09/23 04/09/23 04/09/23 21:19 22:27 23:11 Temperature 97.4 F L Pulse Rate 90 87 87 Respiratory 18 18 18 Rate Blood Pressure 130/84 125/79 117/77 O2 Sat by Pulse 95 96 96 Oximetry Medical Decision Making - Medical Decision Making Was pt. sent in by a medical professional or institution (, PA, HARVEST MANAGER, urgent care, hospital, or detention...) When possible be specific @ -No Did you speak to anyone other than the patient for history (EMS, parent, family, police, friend...)? What history was obtained from this source @ -Spoke with EMS for history Did you review nursing and triage notes (agree or disagree)? Why? @ -I reviewed and agree with nursing and triage notes Were old charts reviewed (outside hosp., previous admission, EMS record, old EKG, old radiological studies, urgent care reports/EKG's, detention records)? Report findings @ -No old charts were reviewed Differential Diagnosis (chest pain, altered mental status, abdominal pain women, abdominal pain men, vaginal bleeding, weakness, fever, dyspnea, syncope, headache, dizziness, GI bleed, back pain, seizure, CVA, palpatations, mental health, musculoskeletal)? @ -Differential GI Bleed: Esophageal varices, aortoenteric fistula, Cathy-Arias, gastritis, peptic ulcer disease, diverticulosis, inflammatory bowel disease, hemorrhoids, fissure, colitis, malignancy, Meckels diverticulum, this is not meant to be an all- inclusive list. EKG interpreted by me (3pts min.). @ -Not done X-rays interpreted by me (1pt min.). @ -Yes and chest x-ray demonstrates no acute process CT interpreted by me (1pt min.). @ -None done U/S interpreted by me (1pt. min.). @ -None done What testing was considered but not performed or refused? (CT, X-rays, U/S, labs)? Why? @ -Endoscopy by transfer to outside facility however patient refused transfer What meds were considered but not given or refused? Why? @ -Octreotide however patient refused transfer Did you discuss the management of the patient with other professionals (professionals i.e. , PA, HARVEST MANAGER, lab, RT, psych nurse, case management social worker, partition assembly machine operator, teacher, procurement officer, director of casework services)? Give summary @ -Spoke with Dr. Coffman in regards to the patient's case at [facility]. He was agreeable to accept transfer the patient Was smoking cessation discussed for >3mins.? @ -No Was critical care preformed (if so, how long)? @ -No Were there social determinants of health that impacted care today? How? (Homelessness, low income, unemployed, alcoholism, drug addiction, transportation, low edu. Level, literacy, decrease access to med. care, shelter, rehab)? @ -Alcohol abuse Was there de-escalation of care discussed even if they declined (Discuss DNR or withdrawal of care, Hospice)? DNR status @ -No What co-morbidities impacted this encounter? (DM, HTN, Smoking, COPD, CAD, Cancer, CVA, ARF, Chemo, Hep., AIDS, mental health diagnosis, sleep apnea, morbid obesity)? @ -Alcohol abuse Was patient admitted / discharged? Hospital course, mention meds given and route, prescriptions, significant lab abnormalities, going to OR and other pertinent info. @ -Discharged AGAINST MEDICAL ADVICE. Patient was placed into room 9. Hooked up to continuous pulse ox and cardiac monitoring. IV was established and laboratory studies are conducted. Chest x-ray was performed. Upon return results are discussed the patient. I did highly recommend transfer to outside facility where there are GI capabilities. Patient was agreeable to this. I called and spoke with Dr. Coffman at [facility] who did accept transfer of this patient. I went back to update the patient who stated that she now wanted to leave AGAINST MEDICAL ADVICE. As the patient is intoxicated I did request that her come to the emergency department to assist her in making medical decisions. I did discuss with the patient and her that this is high risk of permanent disability and even without further treatment. There is concern of esophageal varices and gastric ulcer for which the patient requires hospital admission and GI consultation. Patient is unwilling to stay or be transferred. Patient is aware that she could bleed to because of this issue and is willing to accept these risks. Her is willing to accept these risks and signed her out AGAINST MEDICAL ADVICE. I did request that she should return should she be agreeable for further treatment Undiagnosed new problem with uncertain prognosis? @ -Yes Drug Therapy requiring intensive monitoring for toxicity (Heparin, Nitro, Insulin, Cardizem)? @ -No Were any procedures done? @ -No Diagnosis/symptom? @ -Acute hematemesis, daily alcohol abuse Acute, or Chronic, or Acute on Chronic? @ -Acute Uncomplicated (without systemic symptoms) or Complicated (systemic symptoms)? @ -Complicated Side effects of treatment? @ -No Exacerbation, Progression, or Severe Exacerbation? @ -No Poses a threat to life or bodily function? How? (Chest pain, [place], [place], pneumonia, PE, COPD, DKA, ARF, appy, cholecystitis, CVA, Diverticulitis, Homicidal, Suicidal, threat to staff... and all critical care pts) @ -Yes patient is made aware that she could from this condition - Lab Data Result diagrams: 04/09/23 21:41 04/09/23 21:41 Lab Results 04/09/23 04/09/23 04/09/23 Range/Units 21:41 21:41 21:41 WBC 9.3 (3.8-10.6) k/uL RBC 4.35 (3.80-5.40) m/uL Hgb 15.5 (11.4-16.0) gm/dL Hct 46.0 (34.0-46.0) % MCV 105.7 H (80.0-100.0) fL MCH 35.6 H (25.0-35.0) pg MCHC 33.7 (31.0-37.0) g/dL RDW 12.7 (11.5-15.5) % Plt Count 255 (150-450) k/uL MPV 7.5 Neutrophils % 88 % Lymphocytes % 7 % Monocytes % 3 % Eosinophils % 0 % Basophils % 0 % Neutrophils # 8.2 H (1.3-7.7) k/uL Lymphocytes # 0.7 L (1.0-4.8) k/uL Monocytes # 0.3 (0-1.0) k/uL Eosinophils # 0.0 (0-0.7) k/uL Basophils # 0.0 (0-0.2) k/uL Macrocytosis Slight PT 10.5 (10.0-12.5) sec INR 0.9 (<1.2) APTT 26.4 (22.0-30.0) sec Sodium 141 (137-145) mmol/L Potassium 4.0 (3.5-5.1) mmol/L Chloride 107 (98-107) mmol/L Carbon Dioxide 21 L (22-30) mmol/L Anion Gap 13 mmol/L BUN 5 L (7-17) mg/dL Creatinine 0.47 L (0.52-1.04) mg/dL Est GFR (CKD-EPI)AfAm >90 (>60 ml/min/1.73 sqM) Est GFR (CKD-EPI)NonAf >90 (>60 ml/min/1.73 sqM) Glucose 154 H (74-99) mg/dL Lactic Ac Sepsis Rflx Plasma Lactic Acid Carl (0.7-2.0) mmol/L Calcium 9.3 (8.4-10.2) mg/dL Magnesium 2.4 H (1.6-2.3) mg/dL Total Bilirubin 0.4 (0.2-1.3) mg/dL AST 101 H (14-36) U/L ALT 46 H (4-34) U/L Alkaline Phosphatase 130 H (38-126) U/L Troponin I (0.000-0.034) ng/mL Total Protein 7.6 (6.3-8.2) g/dL Albumin 4.3 (3.5-5.0) g/dL Lipase 519 H (23-300) U/L Serum Alcohol 345 H* mg/dL Blood Type Blood Type Recheck Bld Type Recheck Status Antibody Screen Spec Expiration Date 04/09/23 04/09/23 04/09/23 Range/Units 21:41 21:41 21:42 WBC (3.8-10.6) k/uL RBC (3.80-5.40) m/uL Hgb (11.4-16.0) gm/dL Hct (34.0-46.0) % MCV (80.0-100.0) fL MCH (25.0-35.0) pg MCHC (31.0-37.0) g/dL RDW (11.5-15.5) % Plt Count (150-450) k/uL MPV Neutrophils % % Lymphocytes % % Monocytes % % Eosinophils % % Basophils % % Neutrophils # (1.3-7.7) k/uL Lymphocytes # (1.0-4.8) k/uL Monocytes # (0-1.0) k/uL Eosinophils # (0-0.7) k/uL Basophils # (0-0.2) k/uL Macrocytosis PT (10.0-12.5) sec INR (<1.2) APTT (22.0-30.0) sec Sodium (137-145) mmol/L Potassium (3.5-5.1) mmol/L Chloride (98-107) mmol/L Carbon Dioxide (22-30) mmol/L Anion Gap mmol/L BUN (7-17) mg/dL Creatinine (0.52-1.04) mg/dL Est GFR (CKD-EPI)AfAm (>60 ml/min/1.73 sqM) Est GFR (CKD-EPI)NonAf (>60 ml/min/1.73 sqM) Glucose (74-99) mg/dL Lactic Ac Sepsis Rflx Plasma Lactic Acid Carl 2.9 H* (0.7-2.0) mmol/L Calcium (8.4-10.2) mg/dL Magnesium (1.6-2.3) mg/dL Total Bilirubin (0.2-1.3) mg/dL AST (14-36) U/L ALT (4-34) U/L Alkaline Phosphatase (38-126) U/L Troponin I <0.012 (0.000-0.034) ng/mL Total Protein (6.3-8.2) g/dL Albumin (3.5-5.0) g/dL Lipase (23-300) U/L Serum Alcohol mg/dL Blood Type O Positive Blood Type Recheck No Previous Record Bld Type Recheck Status CABO Indicated Antibody Screen NEGATIVE Spec Expiration Date 04/12/2023 - 234104/09/23 Range/Units 22:18 WBC (3.8-10.6) k/uL RBC (3.80-5.40) m/uL Hgb (11.4-16.0) gm/dL Hct (34.0-46.0) % MCV (80.0-100.0) fL MCH (25.0-35.0) pg MCHC (31.0-37.0) g/dL RDW (11.5-15.5) % Plt Count (150-450) k/uL MPV Neutrophils % % Lymphocytes % % Monocytes % % Eosinophils % % Basophils % % Neutrophils # (1.3-7.7) k/uL Lymphocytes # (1.0-4.8) k/uL Monocytes # (0-1.0) k/uL Eosinophils # (0-0.7) k/uL Basophils # (0-0.2) k/uL Macrocytosis PT (10.0-12.5) sec INR (<1.2) APTT (22.0-30.0) sec Sodium (137-145) mmol/L Potassium (3.5-5.1) mmol/L Chloride (98-107) mmol/L Carbon Dioxide (22-30) mmol/L Anion Gap mmol/L BUN (7-17) mg/dL Creatinine (0.52-1.04) mg/dL Est GFR (CKD-EPI)AfAm (>60 ml/min/1.73 sqM) Est GFR (CKD-EPI)NonAf (>60 ml/min/1.73 sqM) Glucose (74-99) mg/dL Lactic Ac Sepsis Rflx Y Plasma Lactic Acid Carl (0.7-2.0) mmol/L Calcium (8.4-10.2) mg/dL Magnesium (1.6-2.3) mg/dL Total Bilirubin (0.2-1.3) mg/dL AST (14-36) U/L ALT (4-34) U/L Alkaline Phosphatase (38-126) U/L Troponin I (0.000-0.034) ng/mL Total Protein (6.3-8.2) g/dL Albumin (3.5-5.0) g/dL Lipase (23-300) U/L Serum Alcohol mg/dL Blood Type Blood Type Recheck Bld Type Recheck Status Antibody Screen Spec Expiration Date Disposition Clinical Impression: Hematemesis, Alcohol intoxication Disposition: LEFT AGAINST MEDICAL ADVICE Condition: Undetermined Is patient prescribed a controlled substance at d/c from ED?: No Referrals: Alexandre Elizondo MD [Primary Care Provider] - 1-2 days Time of Disposition: 23:20
== END 2023-04-10 00:19 | disposition left against medical advice (07) ==
LOC: EC 21:17
DX: K92.0 Hematemesis (principal); F10.129 Alcohol abuse with intoxication, unspecified; J45.909 Unspecified asthma, uncomplicated; I10 Essential (primary) hypertension; E07.9 Disorder of thyroid, unspecified; F41.9 Anxiety disorder, unspecified; F32.A Depression, unspecified; F17.200 Nicotine dependence, unspecified, uncomplicated; Z79.890 Hormone replacement therapy; Z79.899 Other long term (current) drug therapy; Z79.51 Long term (current) use of inhaled steroids; Z88.2 Allergy status to sulfonamides; Z88.5 Allergy status to narcotic agent; Z91.041 Radiographic dye allergy status; Z88.1 Allergy status to other antibiotic agents; Z88.8 Allergy status to other drugs, medicaments and biological substances; Z53.29 Procedure and treatment not carried out because of patient's decision for other reasons; Y90.8 Blood alcohol level of 240 mg/100 ml or more
CPT/HCPCS: 36415; 86900; 86901; 80053; 83605; 83690; 83735; 84484; 85025; 85610; 85730; 86850; 80320; 71046; 99284; 96374; 96375; 96361; J2405; C9113